=== PATIENT | male | born 1955 | race Caucasian/White ===

== ENCOUNTER → 2018-02-03 | Outpatient (REF) | payer BC ==
[2018-02-03 18:28] LABS: ALBUMIN 3.4 GM/DL (3.2-5.2); ALKALINE PHOSPHATASE 77 U/L (45-117); ALT/SGPT 28 U/L (12-78); ANION GAP 9 MEQ/L (8-16); AST/SGOT 29 U/L (7-37); BILIRUBIN,TOTAL 0.5 MG/DL (0.2-1.0); BLOOD UREA NITROGEN 19 MG/DL (7-18); CALCIUM LEVEL 8.4 MG/DL (8.8-10.2); CARBON DIOXIDE LEVEL 28 MEQ/L (21-32); CHLORIDE LEVEL 107 MEQ/L (98-107); CHOLESTEROL LEVEL 176 MG/DL (<200); GLOMERULAR FILTRATION RATE > 60.0 (>49); GLUCOSE, FASTING 90 MG/DL (70-100); HDL CHOLESTEROL 64 MG/DL (>40); LDL CHOLESTEROL 103 MG/DL (<100); MAGNESIUM LEVEL 1.9 MG/DL (1.8-2.4); NON-HDL-C 112 MG/DL; POTASSIUM SERUM 4.7 MEQ/L (3.5-5.1); SODIUM LEVEL 144 MEQ/L (136-145); TOTAL PROTEIN 6.8 GM/DL (6.4-8.2); TRIGLYCERIDES LEVEL 44 MG/DL (<150)
== END ==
LOC: M LABDRWAD 11:02
DX: E78.5 Hyperlipidemia, unspecified (principal)
CPT/HCPCS: 83735

== ENCOUNTER → 2021-09-03 | Outpatient (REF) | payer MEDICARE, BC | LOC: M SMT 13:18 | PROVIDERS: ATTEND Urology | DX: C61 Malignant neoplasm of prostate (principal) ==

== ENCOUNTER → 2021-11-11 | Outpatient (CLI) | payer BC, MEDICARE ==
[~2021-11-11] MED LIST: AVOD0.5C PO; CHOL25TA9 PO; CIDA500T2 PO; ECHICAP11 PO; FLOM0.4C39 PO; MULT-6 PO; OMEG10002 PO; OXYB5TAB10 PO; SIMV20TA22 PO
== END ==
LOC: M LABSMTC 09:55
PROVIDERS: ATTEND Anesthesiology
DX: Z01.818 Encounter for other preprocedural examination (principal); Z11.52 Encounter for screening for COVID-19

== ENCOUNTER 2021-11-16 06:12 | Inpatient (IN) | payer MEDICARE ==
[~2021-11-16] VITALS: Ht 172.7 cm; Wt 101.5 kg
[2021-11-16] VITALS (8 sets, daily range): BP systolic 102–111; BP diastolic 65–69
[~2021-11-16 06:12] MED LIST changes: +ceFAZolin SOD 2 GM in IV 1 EA IV ONE
[2021-11-16] MEDS ORDERED: LR 1,000 ML IV SCH ×2 (06:30→12:55)
[2021-11-16] MEDS ORDERED: fentaNYL 250 MCG/5 ML INJECTION As Ordered ONE (07:11)
[2021-11-16] MEDS ORDERED: MIDAZOLAM INJ 2MG/2ML VIAL (J2250 PER 1MG) As Ordered ONE (07:11)
[2021-11-16] MEDS ORDERED: LIDOCAINE 2% 100MG/5ML SDV (FOR ANES.) As Ordered ONE (07:11)
[2021-11-16] MEDS ORDERED: ROCURONIUM BROMIDE 50 MG/5 ML VIAL As Ordered ONE ×3 (07:11→10:29)
[2021-11-16] MEDS ORDERED: propofoL 200 MG/20 ML VIAL As Ordered ONE (07:11)
[2021-11-16] MEDS ORDERED: LIDOCAINE 1% SDV 30ML VIAL As Ordered ONE (07:13)
[2021-11-16] MEDS ORDERED: BUPIVACAINE HCL 0.25% 30ML VIAL As Ordered ONE (07:14)
[2021-11-16] MEDS ORDERED: HEPARIN SOD (PORCINE) 5000UNITS/ML 1ML VIAL/SYRINGE As Ordered ONE (07:27)
[2021-11-16] MEDS ORDERED: ONDANSETRON 4MG 2ML VIAL IV PRN ×2 (07:30→12:55)
[2021-11-16] MEDS ORDERED: PERCOCET 5MG/325MG TAB PO PRN (07:30)
[2021-11-16] MEDS ORDERED: ACETAMINOPHEN TAB 650MG DOSE (2X325MG) PO PRN (07:30)
[2021-11-16] MEDS ORDERED: NS 1,000 ML IV SCH (07:30)
[2021-11-16] MEDS: HEPARIN SOD (PORCINE) 5000UNITS/ML 1ML VIAL/SYRINGE SQ ONE (07:40)
[2021-11-16] MEDS ORDERED: dexameTHASONE 4 MG/ML 1ML VIAL (J1100 PER 1MG) As Ordered ONE (07:59)
[2021-11-16] MEDS ORDERED: GLYCOPYRROLATE INJ 0.2 MG/ML 2 ML VIAL As Ordered ONE (08:05)
[2021-11-16] MEDS ORDERED: ePHEDrine SULFATE 25 MG/5 ML(5MG/ML) SYRINGE As Ordered ONE (08:06)
[2021-11-16] MEDS ORDERED: HYDROmorphone HCL 2MG/ML 1ML VIAL As Ordered ONE (08:09)
[2021-11-16] MEDS ORDERED: METOCLOPRAMIDE INJ 10MG/2ML VIAL (J2765 PER 1) As Ordered ONE (08:09)
[2021-11-16] MEDS ORDERED: ACETAMINOPHEN 1000MG 100ML IV BTL (OFIRMEV) (J0131 PER 10MG) As Ordered ONE (08:09)
[2021-11-16] MEDS ORDERED: ONDANSETRON 4MG 2ML VIAL As Ordered ONE (08:09)
[2021-11-16] MEDS ORDERED: SUGAMMADEX SODIUM 500 MG/5 ML VIAL (BRIDION) As Ordered ONE (08:09)
[2021-11-16] MEDS ORDERED: MORPHINE 2 MG/ML 1ML VIAL IV PRN (12:55)
[2021-11-16] MEDS ORDERED: oxyCODONE 5MG TAB PO PRN (12:55)
[2021-11-16] MEDS ORDERED: fentaNYL 100 MCG/2 ML INJECTION IV PRN (12:55)
[2021-11-16 13:42] LABS: HEMATOCRIT 41.8 % (42.0-52.0); HEMOGLOBIN 14.3 g/dl (13.5-17.5); MEAN CORPUSCULAR HEMOGLOBIN 28.7 pg (27.0-33.0); MEAN CORPUSCULAR HGB CONC 34.2 g/dl (32.0-36.5); MEAN CORPUSCULAR VOLUME 83.8 fl (80.0-96.0); PLATELET COUNT, AUTOMATED 161 10^3/uL (150-450); RED BLOOD COUNT 4.99 10^6/uL (4.30-6.10); WHITE BLOOD COUNT 11.9 10^3/uL (4.0-10.0)
[2021-11-16 14:11] LABS: CALCIUM LEVEL 8.5 MG/DL (8.8-10.2); CREATININE FOR GFR 1.31 MG/DL (0.70-1.30); GLOMERULAR FILTRATION RATE 57.9 (>49); POTASSIUM SERUM 4.3 MEQ/L (3.5-5.1)
[2021-11-16] MEDS: ceFAZolin SOD 1 GM in D5W MINI-BAG PLUS 50 ML IV SCH ×2 (16:37→23:34)
[2021-11-16] MEDS: DOCUSATE SODIUM 100MG CAPSULE PO SCH (20:23)
[2021-11-16] MEDS ORDERED: SIMVASTATIN 20 MG TAB PO SCH (21:00)
[2021-11-16] MEDS: HEPARIN SOD (PORCINE) 5000UNITS/ML 1ML VIAL/SYRINGE SC SCH (21:10)
[2021-11-17 03:15] VITALS: BP 112/66
[2021-11-17] MEDS: PERCOCET 5MG/325MG TAB PO PRN ×2 (03:36→10:28)
[2021-11-17] MEDS: HEPARIN SOD (PORCINE) 5000UNITS/ML 1ML VIAL/SYRINGE SC SCH ×2 (05:23→14:00)
[2021-11-17 06:22] LABS: HEMATOCRIT 40.2 % (42.0-52.0); HEMOGLOBIN 13.6 g/dl (13.5-17.5); MEAN CORPUSCULAR HEMOGLOBIN 28.4 pg (27.0-33.0); MEAN CORPUSCULAR HGB CONC 33.8 g/dl (32.0-36.5); MEAN CORPUSCULAR VOLUME 83.9 fl (80.0-96.0); PLATELET COUNT, AUTOMATED 149 10^3/uL (150-450); RED BLOOD COUNT 4.79 10^6/uL (4.30-6.10); WHITE BLOOD COUNT 10.1 10^3/uL (4.0-10.0)
[2021-11-17 07:10] LABS: BLOOD UREA NITROGEN 14 MG/DL (7-18); CALCIUM LEVEL 8.7 MG/DL (8.8-10.2); CARBON DIOXIDE LEVEL 29 MEQ/L (21-32); CHLORIDE LEVEL 107 MEQ/L (98-107); CREATININE FOR GFR 1.03 MG/DL (0.70-1.30); GLOMERULAR FILTRATION RATE > 60.0 (>49); GLUCOSE, FASTING 99 MG/DL (70-100); POTASSIUM SERUM 4.1 MEQ/L (3.5-5.1); SODIUM LEVEL 139 MEQ/L (136-145)
[2021-11-17 07:45] VITALS: BP 113/67
[2021-11-17] MEDS: DOCUSATE SODIUM 100MG CAPSULE PO SCH (10:18)
[2021-11-17 11:15] VITALS: BP 111/67
[2021-11-17] MEDS ORDERED: COLA100C5 PO (13:19)
[2021-11-17] MEDS ORDERED: BACT800T5 PO (13:19)
[2021-11-17] MEDS ORDERED: PERCOCET PO (13:19)
== END 2021-11-17 14:51 | disposition home or self-care (01) | DRG 708 ==
LOC: M OR 06:12 → M MSPAV 14:15
PROVIDERS: ADMIT Urology; ATTEND Urology
PROC: 07BC4ZZ Excision of Pelvis Lymphatic, Percutaneous Endoscopic Approach (ICD-10-PCS; 2021-11-16)
PROC: 8E0W4CZ Robotic Assisted Procedure of Trunk Region, Percutaneous Endoscopic Approach (ICD-10-PCS; 2021-11-16)
PROC: 0VT04ZZ Resection of Prostate, Percutaneous Endoscopic Approach (ICD-10-PCS; principal; 2021-11-16 07:30)
DX: C61 Malignant neoplasm of prostate (principal)

== ENCOUNTER → 2022-07-19 | Outpatient (CLI) | payer MEDICARE ==
[~2022-07-19] MED LIST changes: +BACT800T5 PO; +CASO50TA5 PO; +CITR500T PO; +COLA100C5 PO; +PERCOCET PO; -ceFAZolin SOD 2 GM in IV 1 EA IV ONE
== END ==
LOC: M ONCR 12:48
PROVIDERS: ATTEND General Practice
DX: C61 Malignant neoplasm of prostate (principal); K44.9 Diaphragmatic hernia without obstruction or gangrene; K64.9 Unspecified hemorrhoids; M19.90 Unspecified osteoarthritis, unspecified site; N40.0 Benign prostatic hyperplasia without lower urinary tract symptoms; Z71.2 Person consulting for explanation of examination or test findings; Z79.899 Other long term (current) drug therapy

== ENCOUNTER → 2022-07-28 | Outpatient (CLI) | payer MEDICARE ==
[~2022-07-28] MED LIST changes: +LEUPROLIDE 45MG SYRINGE KIT (LUPRON DEPOT) (FOR ONCOLOGY) IM ONE
== END ==
LOC: M ONCR 10:40
PROVIDERS: ATTEND General Practice
DX: C61 Malignant neoplasm of prostate (principal); Z71.89 Other specified counseling
CPT/HCPCS: 96402; G0463; J9217

== ENCOUNTER → 2022-08-26 | Outpatient (RCR) | payer MEDICARE ==
[~2022-08-26] MED LIST changes: -LEUPROLIDE 45MG SYRINGE KIT (LUPRON DEPOT) (FOR ONCOLOGY) IM ONE
== END ==
LOC: M ONCR 07-28 10:14
PROVIDERS: ATTEND General Practice
DX: C61 Malignant neoplasm of prostate (principal)

== ENCOUNTER → 2022-09-26 | Outpatient (RCR) | payer MEDICARE ==
[~2022-09-26] MED LIST changes: +OXYB10TA23 PO
== END ==
LOC: M ONCR 08-31 13:22
PROVIDERS: ATTEND General Practice
DX: C61 Malignant neoplasm of prostate (principal)

== ENCOUNTER 2022-10-04 13:18 | Outpatient (RCR) | payer MEDICARE | END 2022-10-27 | LOC: M ONCR 13:18 | PROVIDERS: ATTEND General Practice | DX: Z51.0 Encounter for antineoplastic radiation therapy (principal); C61 Malignant neoplasm of prostate ==

== ENCOUNTER → 2022-12-13 | Outpatient (CLI) | payer MEDICARE ==
[~2022-12-13] MED LIST changes: -OXYB5TAB10 PO; +OXYB5TAB11 PO
== END ==
LOC: M RAD 14:20
PROVIDERS: ATTEND Nurse Practitioner
DX: M79.604 Pain in right leg (principal)

== ENCOUNTER → 2023-01-06 | Outpatient (CLI) | payer MEDICARE | LOC: M ONCR 13:16 | PROVIDERS: ATTEND General Practice | DX: C61 Malignant neoplasm of prostate (principal); Z71.2 Person consulting for explanation of examination or test findings; Z79.899 Other long term (current) drug therapy; Z90.79 Acquired absence of other genital organ(s); Z92.3 Personal history of irradiation; Z92.29 Personal history of other drug therapy ==

== ENCOUNTER → 2023-07-07 | Outpatient (CLI) | payer MEDICARE ==
[~2023-07-07] MED LIST changes: -OXYB5TAB11 PO; +OXYB5TAB14 PO
== END ==
LOC: M ONCR 13:17
PROVIDERS: ATTEND General Practice
DX: C61 Malignant neoplasm of prostate (principal); R35.1 Nocturia; Z71.2 Person consulting for explanation of examination or test findings; Z90.79 Acquired absence of other genital organ(s); Z92.29 Personal history of other drug therapy; Z92.3 Personal history of irradiation

== ENCOUNTER → 2024-01-09 | Outpatient (CLI) | payer MEDICARE | LOC: M ONCR 14:18 | PROVIDERS: ATTEND General Practice | DX: Z08 Encounter for follow-up examination after completed treatment for malignant neoplasm (principal); R35.1 Nocturia; Z85.46 Personal history of malignant neoplasm of prostate; Z79.899 Other long term (current) drug therapy; Z92.3 Personal history of irradiation | CPT/HCPCS: 36415; 84403; G0463 ==

== ENCOUNTER → 2025-01-08 | Outpatient (CLI) | payer MEDICARE ==
[~2025-01-08] MED LIST changes: -FLOM0.4C39 PO; +TAMS-18 PO
== END ==
LOC: M ONCR 14:17
PROVIDERS: ATTEND General Practice
DX: C61 Malignant neoplasm of prostate (principal); Z90.79 Acquired absence of other genital organ(s); Z92.3 Personal history of irradiation; Z92.29 Personal history of other drug therapy; Z79.899 Other long term (current) drug therapy